=== PATIENT | female | born 1995 | race Caucasian/White ===

== ENCOUNTER → 2018-12-04 | Outpatient (CLI) | payer MEDICAID ==
[2013-07-26 23:37] VITALS: BP 115/53
[~2018-12-04] MED LIST: FLEXERIL10 MG PO; MIRENA52 MG
== END ==
LOC: LAB 09:43
PROVIDERS: Family Medicine
DX: O99.810 Abnormal glucose complicating pregnancy (principal); Z3A.00 Weeks of gestation of pregnancy not specified; R63.5 Abnormal weight gain

== ENCOUNTER 2019-11-25 12:18 | Observation (INO) | payer SELFPAY ==
[~2019-11-25] VITALS: Ht 170.2 cm; Wt 100.2 kg
[~2019-11-25 12:18] MED LIST changes: -ALBUTEROL2.5 MG/3 M IH; -PREDNISONE20 M1 PO; -ZITHROMAX 250M250 MG PO
[2019-11-25 13:17] VITALS: BP 125/85
[2019-11-25 13:18] VITALS: BP 129/83
[2019-11-25 15:07] VITALS: BP 122/68
[2019-11-25 18:50] VITALS: BP 119/74
[2019-11-25 22:15] VITALS: BP 110/73
[2019-11-26 02:12] VITALS: BP 101/63
[2019-11-26 06:00] LABS: HEMATOCRIT 41.8 % (37.0-47.0); HEMOGLOBIN 13.2 g/dL (12.5-16.0); MEAN CELL VOLUME 81 fl (78-100); MEAN CORPUSCULAR HEMOGLOBIN 26 pg (27-31); MEAN CORPUSCULAR HGB CONC 32 g/dL (33-37); MEAN PLATELET VOLUME 9.4 fl (7.4-10.4); PLATELET COUNT 282 K/mm3 (130-400); RED BLOOD COUNT 5.14 M/mm3 (4.10-5.30); RED CELL DISTRIBUTION WIDTH 14.1 % (11.5-14.5); WHITE BLOOD COUNT 3.4 K/mm3 (4.8-10.8)
[2019-11-26 06:06] VITALS: BP 101/60
[2019-11-26 07:08] LABS: LYMPHOCYTE 23 % (20-51); MONOCYTE 10 % (3-10); NEUTROPHILS 66 % (42-75)
[2019-11-26 09:33] LABS: D-DIMER 0.46 mg/L FEU (0.15-0.50)
[2019-11-26] MEDS ORDERED: PREDNISONE20 M1 PO (09:37)
[2019-11-26] MEDS ORDERED: ALBUTEROL2.5 MG/3 M IH (09:38)
[2019-11-26] MEDS ORDERED: ZITHROMAX 250M250 MG PO (09:38)
[2019-11-26 10:19] VITALS: BP 122/79
== END 2019-11-26 10:31 | disposition home or self-care (01) ==
LOC: MED/SURG 12:18
PROVIDERS: Physician Assistant; ADMIT Nurse Practitioner Family
DX: J40 Bronchitis, not specified as acute or chronic (principal); F17.210 Nicotine dependence, cigarettes, uncomplicated
CPT/HCPCS: G0378; G0379; J7512

== ENCOUNTER → 2019-11-25 | Outpatient (CLI) | payer SELFPAY ==
[2013-07-26 23:37] VITALS: BP 115/53
[~2019-11-25] MED LIST changes: +ALBUTEROL2.5 MG/3 M IH; +PREDNISONE20 M1 PO; +ZITHROMAX 250M250 MG PO
[2019-11-25 10:28] LABS: HEMATOCRIT 42.1 % (37.0-47.0); HEMOGLOBIN 13.5 g/dL (12.5-16.0); MEAN CELL VOLUME 81 fl (78-100); MEAN CORPUSCULAR HEMOGLOBIN 26 pg (27-31); MEAN CORPUSCULAR HGB CONC 32 g/dL (33-37); MEAN PLATELET VOLUME 9.7 fl (7.4-10.4); PLATELET COUNT 290 K/mm3 (130-400); RED BLOOD COUNT 5.19 M/mm3 (4.10-5.30); RED CELL DISTRIBUTION WIDTH 13.8 % (11.5-14.5); WHITE BLOOD COUNT 4.4 K/mm3 (4.8-10.8)
[2019-11-25 10:42] LABS: ALBUMIN 4.5 g/dL (3.5-5.0)
[2019-11-25 10:43] LABS: POTASSIUM 3.6 mmol/L (3.5-5.1)
[2019-11-25 10:44] LABS: CALCIUM 9.2 mg/dL (8.3-10.5)
[2019-11-25 10:45] LABS: TOTAL PROTEIN 7.9 g/dL (6.4-8.3)
[2019-11-25 10:47] LABS: TOTAL BILIRUBIN 0.3 mg/dL (0.2-1.2)
[2019-11-25 10:49] LABS: BAND 1 % (0-10); LYMPHOCYTE 20 % (20-51); MONOCYTE 11 % (3-10); NEUTROPHILS 68 % (42-75)
== END ==
LOC: RAD 10:13
PROVIDERS: Nurse Practitioner
DX: J18.9 Pneumonia, unspecified organism (principal)

== ENCOUNTER 2020-01-08 12:15 | Emergency (ER) | payer OTHER ==
[~2020-01-08 12:15] MED LIST changes: +ALBUTEROL2.5 MG/3 M IH; +PREDNISONE20 M1 PO; +ZITHROMAX 250M250 MG PO
[2020-01-08] MEDS ORDERED: ZOLOFT25 M1 PO (12:23)
[2020-01-08] MEDS ORDERED: DESYREL50 MG PO (12:23)
[2020-01-08 13:25] LABS: EOS # 0.1 (0.04-0.40); EOS % 0.7 % (1.0-5.0); HEMATOCRIT 40.3 % (37.0-47.0); HEMOGLOBIN 12.9 g/dL (12.5-16.0); LYMPH# 1.7 (1.50-4.00); MEAN CELL VOLUME 83 fl (78-100); MEAN CORPUSCULAR HEMOGLOBIN 27 pg (27-31); MEAN CORPUSCULAR HGB CONC 32 g/dL (33-37); MEAN PLATELET VOLUME 9.9 fl (7.4-10.4); MONO # 0.6 (0.20-0.80); NEU # 5.1 (1.40-6.50); PLATELET COUNT 336 K/mm3 (130-400); RED BLOOD COUNT 4.87 M/mm3 (4.10-5.30); RED CELL DISTRIBUTION WIDTH 14.2 % (11.5-14.5); WHITE BLOOD COUNT 7.4 K/mm3 (4.8-10.8)
[2020-01-08 13:37] LABS: POTASSIUM 3.9 mmol/L (3.5-5.1)
[2020-01-08 13:38] LABS: CALCIUM 8.5 mg/dL (8.3-10.5)
[2020-01-08 15:05] VITALS: BP 151/84
== END 2020-01-08 14:32 | disposition home or self-care (01) ==
LOC: ED 12:15
PROVIDERS: Nurse Practitioner Family
DX: S16.1XXA Strain of muscle, fascia and tendon at neck level, initial encounter (principal); M54.9 Dorsalgia, unspecified; Z98.51 Tubal ligation status; V67.5XXA Driver of heavy transport vehicle injured in collision with fixed or stationary object in traffic accident, initial encounter

== ENCOUNTER → 2021-03-24 | Outpatient (CLI) | payer SELFPAY ==
[~2021-03-24] MED LIST changes: +DESYREL50 MG PO; +ZOLOFT25 M1 PO
== END ==
LOC: VAS 09:29
DX: M79.661 Pain in right lower leg (principal)

== ENCOUNTER → 2021-05-13 | Outpatient (CLI) | payer SELFPAY ==
[2021-05-13 11:29] LABS: BASO # 0.05 (0.02-0.10); EOS # 0.07 (0.04-0.40); EOS % 1.3 % (1.0-5.0); HEMATOCRIT 42.7 % (37.0-47.0); HEMOGLOBIN 14.1 g/dL (12.5-16.0); MEAN CELL VOLUME 84 fl (78-100); MEAN CORPUSCULAR HEMOGLOBIN 28 pg (27-31); MEAN CORPUSCULAR HGB CONC 33 g/dL (33-37); MEAN PLATELET VOLUME 9.3 fl (7.4-10.4); MONO # 0.44 (0.20-0.80); NEU # 2.94 (1.40-6.50); PLATELET COUNT 321 K/mm3 (130-400); RED BLOOD COUNT 5.06 M/mm3 (4.10-5.30); RED CELL DISTRIBUTION WIDTH 12.4 % (11.5-14.5); WHITE BLOOD COUNT 5.3 K/mm3 (4.8-10.8)
[2021-05-13 11:33] LABS: ALBUMIN 4.4 g/dL (3.5-5.0)
[2021-05-13 11:34] LABS: CALCIUM 9.4 mg/dL (8.3-10.5)
[2021-05-13 11:35] LABS: TOTAL PROTEIN 7.7 g/dL (6.4-8.3)
[2021-05-13 11:37] LABS: TOTAL BILIRUBIN 0.4 mg/dL (0.2-1.2)
== END ==
LOC: LAB 11:00
PROVIDERS: Family Medicine
DX: Z00.00 Encounter for general adult medical examination without abnormal findings (principal); E78.5 Hyperlipidemia, unspecified